=== PATIENT | female | born 1960 | race Caucasian/White ===

== ENCOUNTER 2022-09-23 14:12 | Outpatient (CLI) | payer BC, SELFPAY ==
--- NOTE | ~2022-09-23 | MM_ITS ---
EXAMINATION: MM screening jhonathan BI w padma HISTORY: Screening mammogram TECHNIQUE: Craniocaudal and mediolateral oblique 3-D tomosynthesis images were obtained and synthetic 2-D images were generated. CAD analysis was submitted and interpreted. COMPARISON: No prior mammogram is available for comparison at this institution. BREAST PARENCHYMAL COMPOSITION: The breasts are almost entirely fatty. FINDINGS: No suspicious mass, calcification, or architectural distortion are identified in either susan ast to suggest malignancy. IMPRESSION: 1. No mammographic evidence of malignancy. 2. Recommend routine screening mammography in one year. BI-RADS Category 1: Negative Reviewed, dictated and finalized at location A.
--- NOTE | ~2022-09-23 | DEXA_ITS ---
Bone Density Report Name: TONEY LOJA Age: 62 Sex: Female Ethnicity: White Date of : 1960 Indication: postmenopausal; screening for osteoporosis; hysterectomy; Referring Provider: RAYMUNDO*VIK Ovalle Study: Bone densitometry was performed. Exam Date: September 23, 2022 Accession number: [id number] Bone Density: Region BMD T-score Z-score Classification AP Spine(L1, L2, L4) 0.981 -0.5 1.1 Normal Femoral Neck (Left) 0.731 -1.1 0.3 Osteopenia Total Hip (Left) 0.870 -0.6 0.5 Normal Femoral Neck (Right) 0.719 -1.2 0.2 Osteopenia Total Hip (Right) 0.929 -0.1 0.9 Normal Total Hip Mean 0.900 -0.4 0.7 Normal World Health Organization criteria for BMD impression classify patients as: Normal (T-score at or above -1.0), Osteopenia (T-score between -1.0 and -2.5), or Osteoporosis (T-score at or below -2.5). 10-year Fracture Risk(1): Major Osteoporotic Fracture 7.1% Hip Fracture 0.5% Reported Risk Factors: [place] (), Neck BMD=0.719, BMI=37.1 (1) FRAX(R) Version 3.08. Fracture probability calculated for an untreated patient. Fracture probability may be lower if the patient has received treatment. Clinical Information Provided by Patient: Has used the following medications: Calcium Has the following medical conditions: Hysterectomy Patient maximum height was 66.5 Menopause Age: 24 Does not regularly consume dairy products Drinks caffeinated beverages Onset of menses at age 17 Number of children 2 Impression: The patient has low bone mass, based on the Right Femoral Neck T-score. The patient has an estimated ten-year risk of hip fracture of 0.5% and an estimated ten-year risk of major fracture of 7.1%, based on the WHO FRAX algorithm. Discussion: BONE DENSITY IS LOW AT ONE OR MORE SKELETAL SITES. This patient's lowest T-score is low at one or more skeletal sites. It meets the World Health Organization's (WHO) criteria for ?low bone mass? (T-score between -1.0 and -2.5). The patient's 10-year risk of fracture as calculated by FRAX is less than the threshold where pharmacological therapy is recommended by the National Osteoporosis Foundation (NOF). However, all treatment decisions require clinical judgment and consideration of individual patient factors, including patient preferences, comorbidities, previous drug use, risk factors not captured in the FRAX model (e.g., frailty, falls, vitamin D deficiency, increased bone turnover, interval significant decline in bone density) and possible under or overestimation of fracture risk by FRAX. The patient should follow a healthful lifestyle (good nutrition with adequate calcium and vitamin D, and appropriate weight-bearing exercise). Follow-Up: Consider repeating this study in 2 to 3 years to reassess this patient's status, or sooner if the
== END 2022-09-23 14:13 | disposition home or self-care (01) ==
PROVIDERS: PCP Family Medicine; Visit Provider Family Medicine
DX: Z12.31 Encounter for screening mammogram for malignant neoplasm of breast (principal); Z78.0 Asymptomatic menopausal state; M85.852 Other specified disorders of bone density and structure, left thigh; M85.851 Other specified disorders of bone density and structure, right thigh
CPT/HCPCS: 77063; 77067; 77080

== ENCOUNTER 2023-01-15 08:45 | Outpatient (CLI) | payer BC, SELFPAY ==
--- NOTE | ~2023-01-15 | XR_ITS ---
EXAMINATION: XR knee LT min 4V DATE: 01/15/2023 09:09 INDICATION: Left knee pain TECHNIQUE: Four views of the left knee were obtained. COMPARISON: None. FINDINGS: Alignment is normal. No fracture or osteochondral lesion. There is tricompartmental osteoar thritis, severe in the lateral patellofemoral compartment. There is a small knee joint effusion. Soft tissues are unremarkable. IMPRESSION: 1. Tricompartmental osteoarthritis, severe in the lateral patellofemoral compartment. Reviewed, dictated and finalized at location B. GRATION TECHNICIAN IMPRESSION: 1. Tricompartmental osteoarthritis, severe in the lateral patellofemoral compar tment.
== END 2023-01-15 08:46 | disposition home or self-care (01) ==
PROVIDERS: PCP Family Medicine; Visit Provider Orthopaedic Surgery
DX: M17.12 Unilateral primary osteoarthritis, left knee (principal)
CPT/HCPCS: 73564

== ENCOUNTER 2023-01-20 09:55 | Outpatient (RCR) | payer BC, SELFPAY ==
--- NOTE | 2023-01-20 13:09 | PTOPEVAL1 ---
Assessment and note entered by Joceline Kinney DPT Evaluation Information Assessment Status Evaluation Diagnosis L knee pain Onset 01/15/23 Subjective Information Patient reports that arthritis in the L knee is progressing over the last 4 years. Patient has difficulty with standing up from a chair, walking for work, and picking things up off the ground. Patient has history of R knee replacement x 2 and revision and still has pain at the R knee. Patient works as a dialysis nurse. Patient has a ramp at home to get into the house and does not use AD. MD states she needs a L TKA but has to do PT first . Reported Pain Level Pain Score 0,8: Self Report Assessment PT Clinical Summary Patient is a 62 year old female who presents to PT with L knee pain. Patient demonstrates increased L knee pain, decreased B LE strength and impaired gait mechanics impairing her ability to walk prolonged distances, stand up from chair and complete work duties. She would benefit from skilled PT to address impairments and return to PLOF. Plan of Care Interventions Electrical Stimulation,Gait Training,Hot Pack/Cold Pack,Manual Therapy,Mechanical Traction,Neuro Re- education,Patient/Caregiver Educati,Therapeutic Activities,Therapeutic Exercise,Self-Care/Home Management PT Services Indicated Yes Treatment Frequency and 2x weekly for 12 visits Duration These treatments will address the objective and functional deficits as defined above. The patient will be advanced safely and appropriately in order for the patient to progress towards his/her prior level of function. Additional exercises will be introduced and as well as a comprehensive home exercise program upon discharge, if needed, ?to ensure carryover of functional gains achieved in the clinic. This treatment plan has been reviewed and agreement upon by the patient.
== END 2023-02-18 16:26 | disposition home or self-care (01) ==
LOC: CHSPT 09:55
PROVIDERS: Visit Provider Physician Assistant Surgical
DX: M25.562 Pain in left knee (principal)
CPT/HCPCS: 97014; 97110; 97161; G0283

== ENCOUNTER 2023-03-12 02:38 | Day surgery (SDC) | payer BC, SELFPAY ==
[2023-02-24 14:44] VITALS: BMI 39.1
--- NOTE | 2023-03-12 10:59 | PM.HPGS ---
History of Present Illness History of Present Illness Consent: Risks, benefits, and alternatives have been discussed and questions answered. Patient agrees to proceed with procedure. Chief complaint: neoplasm screening Narrative: Sol Paz is a 62 year old female here for first colonoscopy, had negative cologuard in the past but also recently found to have anemia. Review of Systems Constitutional: Constitutional: Denies headache(s) and Denies weakness Eyes: Eyes: Denies blurry vision ENT: Reports Normal hearing present, Denies headache(s) and Denies neck pain Cardiovascular: Cardiovascular: Denies chest pain and Denies dyspnea Respiratory: Respiratory: Denies dyspnea Gastrointestinal: Gastrointestinal: Reports no additional gastrointestinal complaints Genitourinary: Genitourinary: Denies dysuria Musculoskeletal: Musculoskeletal: Denies neck pain Integumentary/Breasts: Skin/Breast: Denies dry skin Neurologic: Reports Normal hearing present, Denies headache(s) and Denies weakness Psychiatric: Psychiatric: Denies anxiety Endocrine: Endocrine: Denies change in body appearance Hematologic/Lymphatic: Hematologic/Lymphatic: Denies easy bleeding Allergic/Immunologic: Allergic/Immunologic: Denies urticaria PMFSH Past Medical History Medical History (Updated 03/12/23 @ 11:00 by Zaheer Mcpherson MD) Anemia Arthritis of left knee Chronic migraine Colon cancer screening Elevated glucose Heart defect Heartburn History of postoperative nausea and vomiting History of stress test Hyperlipidemia Left knee pain Migraine headache Surgical History Surgical History History of cholecystectomy (~1987) History of dental surgery History of gastric surgery sleeve History of hysterectomy 1985 History of surgery (~1987) A&D Repair History of total right knee replacement x3 from [id number] Family History Family History Mother Dementia Sibling Hypertension Diabetes mellitus Social History Social History Smoking packs per day: 1.5 Smoking cigarettes per day: 30.0 Years smoked: 25 Smoking pack-years: 37.50 Smoking status: Former smoker Tobacco type: cigarettes Alcohol intake: never Substance use: never Substance use type: does not use Living arrangements: with family Spiritual care concerns: No Meds Home Medications and Allergies Home Medications Medication Instructions Recorded Confirmed Type acetaminophen 325 mg capsule 325 mg PO Q6H PRN Pain 01/13/23 03/12/23 History (Tylenol) atorvastatin 80 mg tablet 80 mg PO DAILY 01/13/23 03/12/23 History esomeprazole magnesium 20 mg 20 mg PO DAILY 01/13/23 03/12/23 History capsule,delayed release (Nexium) metoprolol succinate 50 mg 50 mg PO DAILY 01/13/23 03/12/23 History tablet,extended release 24 hr nitroglycerin 0.4 mg sublingual 0.4 mg sublingual Q5M PRN Chest 01/13/23 03/12/23 History tablet Pain famotidine 10 mg tablet 10 mg PO DAILY 01/15/23 03/12/23 History Allergies Allergy/AdvReac Type Severity Reaction Status Date / Time iron Allergy Unknown unknown Verified 03/12/23 10:59 imitrex Allergy Unknown Unknown Uncoded 03/12/23 10:59 Exam Const: General: comfortable and no acute distress HENMT: Face/Nose/Sinus: Normal nares present Eyes: General: appearance normal, both eyes and all related structures Neck: Neck: no JVD Resp: Auscultation: clear to auscultation bilaterally Cardio: Rate: regular rate Rhythm: regular rhythm GI: Inspection: non-distended GI Palp: Yes Soft to palpation Skin: General skin exam: normal color Neuro: General: gait normal Speech: normal speech Extrem: General: normal to inspection Psych: Mental Status: mental status grossly normal Assessment and Plan Assessmen
[2023-03-12 11:00] VITALS: BP 149/81; PULSE 81; RESP 18; TEMP 36.2; O2SAT 97; BMI 38.6
[2023-03-12] MEDS: LACTATED RINGERS 1,000 ML 150 ML IV CONT (11:10)
--- NOTE | 2023-03-12 11:11 | WPDANESEPPF ---
Anes - Initial Pre Proc Eval Procedure: Operation Date: 03/12/23 12:30 Proposed Procedures p Screening Colonoscopy - Zaheer Mcpherson MD Date/Time: 03/12/23 11:11 Surgeon: Zaheer Mcpherson MD Pre Op Diagnosis: neoplasm screening Patient Data Age: 62 Gender: F Height: 1.68 m Weight: 108.6 kg Last Vital Signs Temp 36.2 C L 03/12/23 11:00 Pulse 81 03/12/23 11:00 Resp 18 03/12/23 11:00 BP 149/81 H 03/12/23 11:00 Pulse Ox 97 03/12/23 11:00 O2 Del Method Room Air 03/12/23 11:00 Allergies Allergy/AdvReac Type Severity Reaction Status Date / Time iron Allergy Unknown unknown Verified 03/12/23 10:59 imitrex Allergy Unknown Unknown Uncoded 03/12/23 10:59 Home Medications Medication Instructions Recorded Confirmed Type acetaminophen 325 mg capsule 325 mg PO Q6H PRN Pain 01/13/23 03/12/23 History (Tylenol) atorvastatin 80 mg tablet 80 mg PO DAILY 01/13/23 03/12/23 History esomeprazole magnesium 20 mg 20 mg PO DAILY 01/13/23 03/12/23 History capsule,delayed release (Nexium) metoprolol succinate 50 mg 50 mg PO DAILY 01/13/23 03/12/23 History tablet,extended release 24 hr nitroglycerin 0.4 mg sublingual 0.4 mg sublingual Q5M PRN Chest 01/13/23 03/12/23 History tablet Pain famotidine 10 mg tablet 10 mg PO DAILY 01/15/23 03/12/23 History Patient hx anesthesia problems: none Family hx anesthesia problems: none Results Review: All pre-operative results and documents have been reviewed as part of the pre-operative evaluation. [facility] Past Medical History Medical History (Updated 03/12/23 @ 11:00 by Zaheer Mcpherson MD) Anemia Arthritis of left knee Chronic migraine Colon cancer screening Elevated glucose Heart defect Heartburn History of postoperative nausea and vomiting History of stress test Hyperlipidemia Left knee pain Migraine headache Surgical History Surgical History History of cholecystectomy (~1987) History of dental surgery History of gastric surgery sleeve History of hysterectomy 1984 History of surgery (~1987) A&D Repair History of total right knee replacement x3 from [id number] Family History Family History Mother Dementia Sibling Hypertension Diabetes mellitus Social History Social History Smoking packs per day: 1.5 Smoking cigarettes per day: 30.0 Years smoked: 25 Smoking pack-years: 37.50 Smoking status: Former smoker Tobacco type: cigarettes Alcohol intake: never Substance use: never Substance use type: does not use Living arrangements: with family Spiritual care concerns: No Anes - Eval Final PreProcedure Day of Procedure 03/12/23 11:11 Patient weight: obese Heart: regular rate and rhythm Lungs: clear to auscultation and normal air movement Airway: Mallampati scale class II Neurological: alert and oriented Last oral intake: >/= 8 hours ASA classification: III Emergent: no Anesthetic plan: proceed Anesthesia type and monitoring: general GIVS Results Review: All pre-operative results and documents have been reviewed as part of the pre-operative evaluation. Informed Consent: The patient's anesthetic plan and its attendant risks and benefits were discussed with the patient/family/POA. Questions were solicited and answers provided to the satisfaction of the patient/family/POA.
[2023-03-12 11:34] VITALS: BP 116/58; PULSE 77; RESP 29; O2SAT 94
[2023-03-12 11:44] VITALS: BP 110/59; PULSE 74; RESP 23; O2SAT 93
[2023-03-12 11:54] VITALS: BP 133/60; PULSE 72; RESP 18; O2SAT 97
== END 2023-03-12 12:02 | disposition home or self-care (01) ==
PROVIDERS: PCP Family Medicine; Visit Provider Internal Medicine Gastroenterology
PROC: 0DJD8ZZ Inspection of Lower Intestinal Tract, Via Natural or Artificial Opening Endoscopic (ICD-10-PCS; CPT 45378; principal; 2023-03-12 12:30)
DX: Z12.11 Encounter for screening for malignant neoplasm of colon (principal); K57.30 Diverticulosis of large intestine without perforation or abscess without bleeding; D12.4 Benign neoplasm of descending colon; K64.8 Other hemorrhoids; D64.9 Anemia, unspecified; E78.5 Hyperlipidemia, unspecified; R12 Heartburn; Z98.84 Bariatric surgery status; Z87.891 Personal history of nicotine dependence; E66.9 Obesity, unspecified; Z68.38 Body mass index [BMI] 38.0-38.9, adult
CPT/HCPCS: 45385; 88305; J2704; J7120

== ENCOUNTER 2023-05-19 09:25 | Outpatient (CLI) | payer BC, SELFPAY ==
--- NOTE | ~2023-05-19 | CT_ITS ---
EXAMINATION: CT lung screening DATE: 05/19/2023 09:53 INDICATION: History of nicotine dependence TECHNIQUE: Computed tomography (CT) of the chest was performed without intravenous contrast. The dose -length product was 212.83 mGy-cm. Automated exposure control and iterative reconstruction technique were employed. COMPARISON: Chest dated 07/14/2017 FINDINGS: There is atherosclerosis of the aorta and coronary arteries. No aneurysm. Heart size normal . There is hiatal hernia. There changes of gastric bypass surgery. No thoracic lymphadenopathy. No si gnificant pleural or pericardial effusion. There are small bilateral pulmonary nodules, largest in th e right upper lobe measuring 3 mm, likely benign. No endobronchial lesions. No pneumothorax. Left low er lobe atelectasis. Mild thoracic spondylosis. IMPRESSION: 1. Lung-RADS category 2: Benign appearance or behavior. Continue annual screening with noncontrast lo w-dose chest CT in 12 months. Reviewed, dictated and finalized at location [] IMPRESSION: 1. Lung-RADS category 2: Benign appearance or behavior. Continue annual screeni ng with noncontrast low-dose chest CT in 12 months.
== END 2023-05-19 09:26 | disposition home or self-care (01) ==
PROVIDERS: PCP Family Medicine; Visit Provider Registered Nurse
DX: Z12.2 Encounter for screening for malignant neoplasm of respiratory organs (principal); Z87.891 Personal history of nicotine dependence
CPT/HCPCS: 71271

== ENCOUNTER 2025-11-28 10:51 | Outpatient (CLI) | payer BC, SELFPAY ==
--- OUTSIDE RECORDS SUMMARY | 2025-11-28 11:34 | XMS_ITS | Clinical Summary ---
Author Organization [facility] Address [address] [place] [address] Care Team Providers Care Punch Press Operator Name Role Phone MarbleheadShin MD Unavailable [phone] Makayla Sanz MD Unavailable Eric Maxwell MD Primary Care Provider Primo Dunbar MD Unavailable [phone] Allergies Active Allergy Reactions Criticality Noted Date Comments Iron Vomiting High 02/25/2023 Sumatriptan Swelling,Unknown 05/10/2016 Medications omeprazole 20 MG capsule Take 2 capsules (40 mg total) by mouth nightly at bedtime. Active atorvastatin 80 MG tablet Take 1 tablet (80 mg total) by mouth nightly at bedtime. 90 tablet 3 0 Active ibuprofen 200 MG tablet Take 1 tablet (200 mg total) by mouth every 6 (six) hours as needed for Pain. Active acetaminophen 500 MG tablet Take 1 tablet (500 mg total) by mouth every 6 (six) hours as needed for Pain. Active METOPROLOL SUCCINATE ER 50 MG 24 hr tablet TAKE 1 TABLET BY MOUTH EVERY DAY 90 tablet 2 1 Active Additional Information Patient taking differently: Nightly at bedtime, Reported on 02/25/2023 nitroglycerin 0.[address] 1 tablet (0.4 mg total) under the tongue every 5 (five) minutes as needed for Chest Pain. Active famotidine (PEPCID) 20 MG tablet Take 1 tablet (20 mg total) by mouth daily. 3 Active Active Problems Problem Noted Date Diagnosed Date Status post revision of total replacement of rig ht knee 03/20/2021 Aftercare following surgery 12/17/2020 Painful orthopaedic hardware 12/04/2020 Primary osteoarthritis of right knee 09/26/2020 Hallux valgus of right foot 09/26/2020 Aftercare following right knee joint replacement surgery 05/28/2018 Syndrome X (cardiac) 10/29/2017 Hypercholesterolemia 10/29/2017 Abnormal stress echo 09/09/2017 Microvascular angina 09/09/2017 Essential hypertension 08/06/2017 Resolved Problems Problem Noted Date Diagnosed Date Resolved Date Status post total right knee replacement 10/02/2020 10/16/2020 Atypical angina 08/06/2017 09/09/2017 Family History * Patient is adopted Medical History Relation Comments Diabetes Brother 2 Heart Disease Brother 2 Kidney Disease Brother 2 Diabetes Brother 3 Hypertension Brother 3 Kidney Disease Brother 3 Cancer Father Arthritis Mother cirrhosis of the liver Sister Relation Status Comments Brother 1 Alive Brother 2 Alive Brother 3 Father Mother Alive Sister Alive Social History Tobacco Use Types Packs/Day Years Used Date Smoking Tobacco: Every Day Cigarettes 0.3 13 Smokeless Tobacco: Never Alcohol Use Standard Drinks/Week Comments No 0 (1 standard drink = 0.6 oz pur e alcohol) Comments No Sex and Gender Information Value Date Recorded Sex Assigned at Not on file Legal Sex Female 11:15 PM BUSINESS OPERATIONS COORDINATOR Gender Identity Not on file Sexual Orientation Not on file Occupation Industry Job Start Date Job End Date RN Not on file Not on file Not on file Last Filed Vital Signs Vital Sign Reading Time Taken Comments Blood Pressure 120/80 02/25/2023 8:59 AM CDT Pulse 60 02/25/2023 8:59 AM CDT Temperature 36.1 C (96.9 F) 03/20/2021 4:58 AM CDT Respiratory Rate 18 02/25/2023 8:59 AM CDT Oxygen Saturation 98% 09/23/2022 8:56 AM CDT Inhaled Oxygen Concentration - - Weight 110.7 kg (244 lb) 02/25/2023 8:56 AM CDT Height 168.9 cm (5' 6.5) 02/25/2023 8:56 AM CDT Body Mass Index 38.79 02/25/2023 8:56 AM CDT Plan of Treatment Health Maintenance Due Date Last Done Comments ASCVD Statin 1960 Colorectal Cancer Screening Colonoscopy (10 Years) 1960 Hepatitis C 1978 DTaP, Tdap and Td Vaccines ( 1 - Tdap) 1979 Pneumococcal Vaccine: 50+ Years (1 of 2 - PCV) 1979 Mammogram Screening 2000 Zoster Vaccines (1 of 2) 2010 RSV Immunization or 60+ Years (1 - Risk 60-74 years 1-dose series) 2020 ASCVD LDL 09/28/2021 09/28/2020, 02/08/2019 COVID-19 Vaccine (1 - 2024-2 6 season) 2025 Influenza Adult (#1) 2025 Dexa Scan (General) 2025 Hepatitis A Vaccines Aged Out No long er eligible based on patient's age to complete this topic Meningococcal B Vaccine Aged Out No l onger eligible based on patient's age to complete this topic Meningococcal Vaccine Aged Out No jovan kary eligible based on patient's age to complete this topic RSV Immunizations Under 20 Months Aged Out No longer eligible b ased on patient's age to complete this topic Medical Devices Implanted Type Area Wind Turbine Electrical Engineer Device Identifier Shelf Expiration Date Model / Serial / Lot Cement Simplex Hv W/Gentamicin - [id number] Implanted:Qty : 1 on 03/19/2021 by Shin Holguin MD at [facility] Cement Implant Right: Knee [employer] - DIV NIA RENATO [id number] 01/28/2022 6195-1-010 / / [id number] Cement Simplex Hv W/Gentamicin - [id number] Implanted:Qty : 1 on 03/19/2021 by Shin Holguin MD at [facility] Cement Implant Right: Knee [employer] - DIV NIA RENATO 01/28/2022 6195-1-010 / / [id number] Insert Depuy Rotating Platform Attune Tibial Size 5 5mm - [id number] Implanted:Qty : 1 on 10/02/2020 by Shin Holguin MD at [facility] Hip Components Right: Knee [employer] - A [employer]EL [employer] AD[employer]EL [id number] 04/30/2025 1516-30-505 / / [id number] Insert Depuy Rotating Platform Attune Tibial Size 5 7mm - [id number] Implanted:Qty : 1 on 12/04/2020 by Shin Holguin MD at [facility] Hip Components Right: Knee [employer] [id number] 04/30/2025 1516-30-507 / / [id number] Dome Attune Patella Medialized Cemented 35mm Aox - [id number] Implanted:Qty : 1 on 10/02/2020 by Shin Holguin MD at [facility] Patella Right: Knee [employer] - [employer] [id number] 07/31/2034 1518-20-035 / / [id number] Depuy Cnw 2 Implanted:Qty : 1 on 10/02/2020 by Shin Holguin MD at [facility] Right: Knee [id number] 08/30/2022 [id number] / / [id number] Attune Femoral Porocoate Cruciate Retaining Implanted:Qty : 1 on 10/02/2020 by Shin Holguin MD at [facility] Right: Knee [id number] 01/28/2023 [id number] / / [id number] Attune Tibial Base Implanted:Qty : 1 on 10/02/2020 by Shin Holguin MD at [facility] Right: Knee [id number] 03/30/2029 [id number] / / [id number] Attune Knee Revision Tibial Base Rotating Platform, Cemented Implanted:Qty : 1 on 03/19/2021 by Shin Holguin MD at [facility] Right: Knee [id number] 03/30/2030 [id number] / / [id number] Attune Tibal Insert Rotating Platform Posterior Stabilized Implanted:Qty : 1 on 03/19/2021 by Shin Holguin MD at [facility] Right: Knee [id number] 09/30/2024 [id number] / / [id number] Attune Knee System Revision Distal Femoral Augment Implanted:Qty : 1 on 03/19/2021 by Shin Holguin MD at [facility] Right: Knee 12/31/2028 [id number] / / [id number] Attune Knee System Revision Distal Femoral Augment Implanted:Qty : 1 on 03/19/2021 by Shin Holguin MD at [facility] Right: Knee [id number] 10/30/2028 [id number] / / [id number] Attune Knee Revision Cemented Stem Implanted:Qty : 1 on 03/19/2021 by Shin Holguin MD at [facility] Right: Knee [id number] 07/31/2029 [id number] / / [id number] Attune Knee Revision Femoral Sleeve Porocoat Fully Coated Implanted:Qty : 1 on 03/19/2021 by Shin Holguin MD at [facility] Right: Knee [id number] 11/30/2029 [id number] / / [id number] Attune Knee Revision Crs Femoral Cemented Implanted:Qty : 1 on 03/19/2021 by Shin Holguin MD at [facility] Right: Knee 10/30/2030 [id number] / / [id number] Attune Knee Revision Pressfit Stem Implanted:Qty : 1 on 03/19/2021 by Shin Holgiun MD at [facility] Right: Knee 01/28/2030 [id number] / / [id number] Procedures Procedure Name Priority Date/Time Associated Diagnosis Comments LIPID PANEL Routine 09/28/2020 12:09 PM CDT Hypercholesterolemia from Last 3 Months or Most Recently Relevant to Health Maintenance Results * LIPID PANEL (09/28/2020 12:09 PM CDT) CHOLESTEROL 162 MG/DL 09/28/2020 1:02 PM CDT [facility] Comment:DESIRABLE: <200 TRIGLYCERIDES 116 MG/DL 09/28/2020 1:02 PM CDT [facility] Comment:<150 NORMAL HDL 60 >49 MG/DL 09/28/2020 1:02 PM CDT [facility] LDL (CALCULATED) 79 MG/DL 09/28/20 1:02 PM CDT [facility] Comment:<100 OPTIMAL VLDL CALCULATION 23 MG/DL 09/28/20 20 1:02 PM CDT [facility] Comment:REFERENCE RANGE NOT ESTABLISHED CHOL/HDL RATIO 2.7 09/28/2020 1:02 PM CDT [facility] Comment:REFERENCE RANGE NOT ESTABLISHED LDL/HDL 1.3 09/28/2020 1:02 PM CDT [facility] Comment:REFERENCE RANGE NOT ESTABLISHED NON HDL CHOLESTEROL 102 MG/DL 09/28/2020 1:02 PM CDT [facility] Comment:REFERENCE RANGE NOT ESTABLISHED 09/28/2020 12:0 9 PM CDT Corbin Schulte MD LABORATORY Final Result [facility] [address] [place] [address], [id number] from Last 3 Months or Most Recently Relevant to Health Maintenance Insurance [facility] Advance Directives * Full Code (Latest Code Status on File) Date Activated Date Inactivated Comments 03/19/2021 8:16 PM 03/20/2021 2:29 PM * Full Code Date Activated Date Inactivated Comments 10/02/2020 7:45 PM 10/03/2020 1:35 PM Care Teams Punch Press Operator Relationship Specialty Start Date End Date Eric Maxwell MD [address] [place] [address] PCP - General FAMILY PRACTICE 09/23/22 Shin Holguin MD [address] [place] [address] ORTHOPAEDICS 05/27/18 Makayla Sanz MD [address] [place] [address] Consulting Physician CARDIOVASCULAR DISEASE 04/12/21 Primo Dunbar MD [address] [address] ORTHOPAEDIC SURGERY 02/13/23
--- OUTSIDE RECORDS SUMMARY | 2025-11-28 11:34 | XMS_ITS | Encounter Summary ---
Author Organization [facility] Address [facility] [place] [address] Care Team Providers Care Fur Cutting Machine Operator Name Role Phone Lake Simmons MD Primary Care Provider + [phone] Ankur Anne MD Unavailable [phone] Corbin Schulte MD Unavailable Unavailable Shin Holguin MD Unavailable [phone] Makayla Sanz MD Unavailable Eric Maxwell MD Primary Care Provider Primo Dunbar MD Unavailable [phone] Encounter Details Date Type Department Care Team (Latest Contact Info) Description 10/06/2018 Abstract [facility] Chris Rosenbaum MD Social History Tobacco Use Types Packs/Day Years Used Date Smoking Tobacco: Never Assessed Comments Unknown Sex and Gender Information Value Date Recorded Sex Assigned at Not on file Legal Sex 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 Gender Identity Not on file Sexual Orientation Not on file documented as of this encounter Plan of Treatment Not on file documented as of this encounter Visit Diagnoses Not on filedocumented in this encounter Additional Health Concerns Infection Onset Date Last Indicated Resolved Time COVID-19 Rule Out 09/29/2020 09/29/2020 10/01/2020 2:05 AM FIXER BOARDING ROOM COVID-19 Rule Out 12/01/2020 12/01/2020 12/03/2020 12:01 PM FIXER BOARDING ROOM COVID-19 Rule Out 03/16/2021 03/16/2021 03/17/2021 2:40 PM CDT documented as of this encounter Care Teams Fur Cutting Machine Operator Relationship Specialty Start Date End Date Lake Simmons MD PCP - General INTERNAL MEDICINE 07/21/17 09/22/22 Eric Maxwell MD [address] [place] [phone] PCP - General FAMILY PRACTICE 09/23/22 Ankur Anne MD [place] Operation Agent CARDIOVASCULAR DISEASE 07/21/17 04/11/21 Corbin Schulte MD INTERVENTIONAL CARDIOLOGY 09/09/17 04/11/21 Shin Holguin MD [address] [place] [address] ORTHOPAEDICS 05/27/18 Makayla Sanz MD [address] [place] [address] Consulting Physician CARDIOVASCULAR DISEASE 04/12/21 Primo Dunbar MD [address] [address] ORTHOPAEDIC SURGERY 02/13/23 documented as of this encounter
--- OUTSIDE RECORDS SUMMARY | 2025-11-28 11:34 | XMS_ITS | Clinical Summary ---
Author Organization [facility] Address [address] [place] [address] Phone Care Team Providers Care Hand Washer Name Role Phone Provider, None Primary Care Provider Unavailabl e Allergies Active Allergy Reactions Criticality Noted Date Comments Sumatriptan Swelling 05/14/2022 Medications No known medications Social History Tobacco Use Types Packs/Day Years Used Date Smoking Tobacco: Every Day Cigarettes Smokeless Tobacco: Never Comments No Sex and Gender Information Value Date Recorded Sex Assigned at Not on file Legal Sex Female 7:39 AM CDT Gender Identity Not on file Sexual Orientation Not on file Last Filed Vital Signs Vital Sign Reading Time Taken Comments Blood Pressure 168/70 05/14/2022 7:50 AM CDT Pulse 96 05/14/2022 7:50 AM CDT Temperature 35.9 C (96.7 F) 05/14/2022 7:50 AM CDT Respiratory Rate 18 05/14/2022 7:50 AM CDT Oxygen Saturation 95% 05/14/2022 7:50 AM CDT Inhaled Oxygen Concentration - - Weight 93.9 kg (207 lb) 05/14/2022 7:50 AM CDT Height 168.9 cm (5' 6.5) 05/14/2022 7:50 AM CDT Body Mass Index 32.91 05/14/2022 7:50 AM CDT Plan of Treatment Not on file Insurance [facility] Care Teams Hand Washer Relationship Specialty Start Date End Date Provider, None [place] PCP - General 05/14/22
--- OUTSIDE RECORDS SUMMARY | 2025-11-28 11:34 | XMS_ITS | Encounter Summary ---
Author Organization [facility] Address [address] [place] [address] Care Team Providers Care Private Pilot Name Role Phone Lake Simmons MD Primary Care Provider + [phone] Ankur Anne MD Unavailable [phone] Corbin Schulte MD Unavailable Unavailable Shin Holguin MD Unavailable [phone] Makayla Sanz MD Unavailable Eric Maxwell MD Primary Care Provider [phone] Primo Dunbar MD Unavailable [phone] Encounter Details Date Type Department Care Team (Late st Contact Info) Description 02/14/2018 Abstract [facility] [address] [place] [address] , Generic Conversion, Social History Tobacco Use Types Packs/Day Years Used Date Smoking Tobacco: Former Alcohol Use Standard Drinks/Week Comments No 0 (1 standard drink = 0.6 oz pur e alcohol) Comments Unknown Sex and Gender Information Value Date Recorded Sex Assigned at Not on file Legal Sex Female 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 Gender Identity Not on file Sexual Orientation Not on file Occupation Industry Job Start Date Job End Date RN Not on file Not on file Not on file documented as of this encounter Plan of Treatment Not on file documented as of this encounter Visit Diagnoses Not on filedocumented in this encounter Additional Health Concerns Infection Onset Date Last Indicated Resolved Time COVID-19 Rule Out 09/29/2020 09/29/2020 10/01/2020 2:05 AM SYNTHETIC DEPARTMENT SUPERVISOR COVID-19 Rule Out 12/01/2020 12/01/2020 12/03/2020 12:01 PM SYNTHETIC DEPARTMENT SUPERVISOR COVID-19 Rule Out 03/16/2021 03/16/2021 03/17/2021 2:40 PM CDT documented as of this encounter Care Teams Private Pilot Relationship Specialty Start Date End Date Lake Simmons MD PCP - General INTERNAL MEDICINE 07/21/17 09/22/22 Eric Maxwell MD [address] [place] [phone] PCP - General FAMILY PRACTICE 09/23/22 Ankur Anne MD [place] [employer] Machine Hopper Feeder CARDIOVASCULAR DISEASE 07/21/17 04/11/21 Corbin Schulte MD INTERVENTIONAL CARDIOLOGY 09/09/17 04/11/21 Shin Holguin MD [address] [place] [address] ORTHOPAEDICS 05/27/18 Makayla Sanz MD [address] [place] [address] Consulting Physician CARDIOVASCULAR DISEASE 04/12/21 Primo Dunbar MD [address] [address] ORTHOPAEDIC SURGERY 02/13/23 documented as of this encounter
--- NOTE | 2025-11-28 11:44 | ECG_ITS ---
Test Date: 2025-11-28 11:58:15 Measurements Intervals [place] Rate: 58 P: 66 [place]: 186 QRS: 61 QRSD: 78 T: 61 QT: 410 QTc: 405 Interpretive Statements SINUS BRADYCARDIA CANNOT R/O SEPTAL INFARCT, AGE INDETERMINATE BASELINE ARTIFACT- I, II, AVR, V1, V6 ABNORMAL ECG No previous ECG available for comparison Electronically Signed On 11-28-2025 22:05:54 MATTRESS FILLER by Thaddeus Wilson D.O.
[2025-11-28 12:08] LABS: Hematocrit 50.2 % (37.0-47.0); Hemoglobin 16.2 g/dL (12.0-15.0); Immature Granulocyte Percent A 0.2 % (0-0.5); Lymphocytes Absolute Auto 2.24 K/mm3 (0.9-3.2); Mean Corpuscular HGB Conc 32.3 g/dl (32-36); Mean Corpuscular Hemoglobin 26.3 pg (26-34); Mean Corpuscular Volume 81.4 fl (80-100); Nucleated Red Blood Cells Absolute Auto 0.000 K/mm3 (0.0-0.012); Nucleated Red Blood Cells Perc 0.0 % (0.0-0.2); Platelet Count Result 210 k/mm3 (150-375); Red Blood Count 6.17 M/mm3 (4.2-5.4); White Blood Count 5.4 K/mm3 (4.5-10.0)
[2025-11-28 12:18] LABS: Hemoglobin A1C 5.6 % (<5.7)
[2025-11-28 12:31] LABS: Albumin Level 4.0 g/dL (3.5-5.1); Estimated Glomerular Filt Rate > 60; Glucose 95 mg/dL (65-110)
[2025-11-28 13:18] LABS: MRSA (PCR) NOT DETECTED (NOT DETECTE)
== END 2025-11-28 10:52 | disposition home or self-care (01) ==
PROVIDERS: PCP Family Medicine; Visit Provider Orthopaedic Surgery
DX: M17.12 Unilateral primary osteoarthritis, left knee (principal); Z01.818 Encounter for other preprocedural examination
CPT/HCPCS: 80307; 82040; 82565; 82947; 83036; 85025; 86850; 86900; 86901; 87641; 93005